=== PATIENT | female | born 1985 | race Caucasian/White ===

== ENCOUNTER → 2020-02-12 12:11 | Outpatient (CLI) | payer OTHER, SELFPAY ==
--- NOTE | ~2020-02-12 | XR_ITS ---
EXAMINATION: XR wrist LT min 3V DATE: 02/12/2020 12:29 INDICATION: Left wrist pain. TECHNIQUE: 4 views of left wrist were obtained. COMPARISON: None. FINDINGS: Bone alignment is normal. No fracture. Joint spaces are well maintained. IMPRESSION: 1. Normal left wrist. Reviewed, dictated and finalized at location A. IMPRESSION: 1. Normal left wrist.
== END ==
PROVIDERS: PCP Nurse Practitioner Family; Visit Provider Nurse Practitioner Family
DX: M25.532 Pain in left wrist (principal)
CPT/HCPCS: 73110

== ENCOUNTER → 2020-04-10 11:18 | Outpatient (CLI) | payer OTHER, SELFPAY ==
--- NOTE | ~2020-04-10 | US_ITS ---
EXAMINATION: US pelvic complete w TV DATE: 04/10/2020 11:46 INDICATION: Pelvic pain. TECHNIQUE: Multiple transabdominal and transvaginal sonographic images of the pelvis were obtained. COMPARISON: Ultrasound 08/01/2016 FINDINGS: TRANSABDOMINAL ULTRASOUND: The uterus measures 10.1 x 6.6 x 5.8 cm. There is trace free fluid in the pelvis. TRANSVAGINAL ULTRASOUND: The endometrial complex measures 7 mm in thickness. There is a 5 mm cyst in the endometrial complex. There is a 2.5 cm hypoechoic subserosal fibroid anteriorly. The right ovary measures 4.1 x 2.6 x 2.7 cm. The left ovary measures 2.4 x 2.1 x 3.6 cm. There is normal vascular flow in the ovaries. IMPRESSION: 1. Uterine fibroid. 2. Small cyst in the endometrial complex. Correlate with menstrual history to exclude gestational sac . Reviewed, dictated and finalized at location A. IMPRESSION: 1. Uterine fibroid. 2. Small cyst in the endometrial complex. Correlate with menstrual history to e xclude gestational sac.
== END ==
PROVIDERS: Visit Provider Nurse Practitioner Family
DX: R10.9 Unspecified abdominal pain (principal); D25.9 Leiomyoma of uterus, unspecified
CPT/HCPCS: 76830; 76856

== ENCOUNTER 2023-02-21 08:31 | Outpatient (CLI) | payer OTHER, SELFPAY ==
[2023-02-21 09:31] LABS: Hematocrit 40.5 % (37.0-47.0); Hemoglobin 13.2 g/dL (12.0-15.0); Mean Corpuscular HGB Conc 32.6 g/dl (32-36); Mean Corpuscular Hemoglobin 29.9 pg (26-34); Mean Corpuscular Volume 91.6 fl (80-100); Mean Platelet Volume 9.7 fl (7.4-10.4); Platelet Count Result 340 k/mm3 (150-375); Red Blood Count 4.42 M/mm3 (4.2-5.4); Red Cell Distribution Width 12.8 % (11.5-14.5)
== END 2023-02-21 08:32 | disposition home or self-care (01) ==
LOC: ANHSURGERY 08:35
PROVIDERS: PCP Nurse Practitioner Family; Visit Provider Obstetrics & Gynecology
DX: Z01.818 Encounter for other preprocedural examination (principal); D25.9 Leiomyoma of uterus, unspecified
CPT/HCPCS: 36415; 85027; 86850; 86900; 86901

== ENCOUNTER 2023-04-12 00:18 | Day surgery (SDC) | payer OTHER, SELFPAY ==
[2023-02-20 12:56] VITALS: BMI 25.7
--- NOTE | 2023-02-20 13:01 | PC.NURSE ---
Addendum entered by Magdalena Harden RN 03/28/23 14:53: PT TO ARRIVE AT 0600 ON 04/12/23 FOR SURGERY AT 0730. Original Note: Report to the Outpatient Waiting Room, entrance under the green pavilion located off [facility], at time 7:30 on date 03/01/23. Planned Procedure Time: 9:30. Time changes happen often and if your time is changed the preop area will call you the afternoon before. - You and your visitor will be asked to self-screen and do not enter if you have any COVID symptoms. - A mask is optional within the hospital at this time. Patients may have clear liquids (water, carbonated beverages, clear teas, apple juice) until 3 hours prior to surgery (6:30) with a maximum of 20 ounces. - No food from midnight until time of surgery Take the following medications with a SIP of water the morning of surgery: N/A DO NOT STOP ANY OF YOUR OTHER PRESCRIPTION MEDICATIONS PRIOR TO SURGERY ?EXCEPT THE FOLLOWING Medications to discontinue per physician: IBUPROFEN Date to take last dose: PER DR. CAIN Please no make-up, nail mongolian, hairspray, perfume, deodorant, or body powder the day of surgery. No jewelry (including any body piercings) or valuables the day of surgery, leave them at home. Please take a shower or bath the night before, or the morning of, surgery with an antibacterial soap. Wear comfortable, loose fitting clothing. - Jewelry must be removed prior to entering the operating room. Rings and piercings that are not removed may be cut off. - The hospital will not accept responsibility for valuables. - Please leave all valuables, including medications, at home the day of surgery. If you are going home after surgery, a licensed test car driver must drive you home. - NO public transportation without another adult if you receive anesthesia. - We recommend that an adult stay with you for 24 hours following discharge. - We also recommend that you do not drive, make important decision, drink alcoholic beverages, or take any drugs that were not prescribed by your health care provider for at least 24 hours after your discharge time. Follow any additional instructions given to you from your surgeon. If you or anyone in your household have experienced Covid symptoms in the past week, please notify your surgeon or the nurse liaison at the phone number below for possible testing. Telephone instructions given to PT - LUCINDA BRAMBILA and asked if any additional questions and then verbalized understanding. Patient advised to call surgeon office or pre surgery nurse liaison [phone] if any additional questions.
--- NOTE | 2023-04-10 17:58 | PM.IMHP ---
H&P: HPI History of Present Illness Date/Time: 04/10/23 17:58 38-year-old 4 para 3 0 1 3 presents with complaints of heavy menstrual cycles lasting 5-7 days 3-5 day heavy with clotting cramping is significant amount of discomfort during this time as well. Also relates painful intercourse throughout the month, and pain throughout the month as well. She has had an ultrasound which shows fibroids and multiple options have been discussed and she does desire to proceed with hysterectomy. Chief Complaint: Pelvic pain Review of Systems Review of Systems: All systems reviewed & are unremarkable except as noted in HPI and below PMFSH Past Medical History Medical History Anxiety Surgical History Surgical History [place] teeth removed Family History Family History Father Acute myocardial infarction Throat cancer Hypertension Heart disease Grandparent Cerebrovascular accident paternal grandmother Carcinoma of colon paternal grandfather Heart disease Social History Social History Smoking status: Never smoker Second hand tobacco smoke exposure: No Alcohol intake: never Substance use: never Substance use type: does not use Lack of Transportation: No Lack of Food: Never True Current Housing: I Have Housing Concerned About Future Housing: No Difficulty Paying Gas/Electric Bills: No Difficulty Paying for Meds: No Currently Unemployed: No Education: Trade/Vocational Certificate Difficulty w/ Childcare or Family Care: No Living arrangements: with family 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 Gender identity (if verbalized by the patient): Female Sexual Orientation (if Verbalized by the Patient): Straight or Heterosexual Spiritual care concerns: No Meds Home Medications and Allergies Home Medications Medication Instructions Recorded Confirmed Type ibuprofen 600 mg tablet 600 mg PO TID PRN Pain 02/20/23 03/28/23 History Allergies Allergy/AdvReac Type Severity Reaction Status Date / Time acetaminophen [From Vicodin] AdvReac Vomiting Verified 03/28/23 14:54 hydrocodone [From Vicodin] AdvReac Vomiting Verified 03/28/23 14:54 Exam Const: General: cooperative, healthy appearing and comfortable Resp: Effort & Inspection: normal respiratory effort Auscultation: clear to auscultation bilaterally Cardio: Rate: regular rate Rhythm: regular rhythm GI: Inspection: normal to inspection Auscultation: normal bowel sounds : External Female Exam: normal external appearance Speculum Exam - Vagina: normal appearance of the vagina Speculum Exam - Cervix: normal appearance of the cervix Bimanual exam- vagina & uterus: enlarged ( 8-10 week size and tender.) Bimanual Exam- Adnexa, other: normal adnexae Assessment and Plan Assessment and plan (1) Menorrhagia: Code(s): N92.0 - Excessive and frequent menstruation with regular cycle Status: Acute (2) Dysmenorrhea: Code(s): N94.6 - Dysmenorrhea, unspecified Status: Acute (3) Dyspareunia: Status: Acute (4) Uterine fibroid: Code(s): D25.9 - Leiomyoma of uterus, unspecified Status: Acute (5) Enlarged uterus: Code(s): N85.2 - Hypertrophy of uterus Status: Acute Plan proceed with robotic laparoscopic hysterectomy with ovarian preservation
[2023-04-12] VITALS (10 sets, daily range): BP systolic 93–132; BP diastolic 38–95; PULSE 65–98; RESP 14–22; TEMP 36.1–37.5; O2SAT 97–100
[2023-04-12] MEDS: ACETAMINOPHEN 500 MG TABLET 1000 MG PO (06:32)
[2023-04-12] MEDS: KETOROLAC 15 MG/ML VIAL (*BKC) IV PUSH (06:45)
[2023-04-12] MEDS: SCOPOLAMINE 1.5 MG PATCH TRANSDERM (06:45)
--- NOTE | 2023-04-12 06:45 | WPDANESEPPF ---
Anes - Initial Pre Proc Eval Procedure: Operation Date: 04/12/23 07:30 Proposed Procedures p Robotic Assisted Total Laparoscopic Hysterectomy with Bilateral Salpingectomy - Valentino Gill MD Date/Time: 04/12/23 06:45 Surgeon: Valentino Gill MD Pre Op Diagnosis: uterine fibroid, pelvic pain Patient Data Age: 38 Gender: F Height: 1.63 m Weight: 68.05 kg Allergies Allergy/AdvReac Type Severity Reaction Status Date / Time hydrocodone [From Vicodin] AdvReac Vomiting Verified 04/12/23 05:58 Home Medications Medication Instructions Recorded Confirmed Type ibuprofen 600 mg tablet 600 mg PO TID PRN Pain 02/20/23 04/12/23 History Patient hx anesthesia problems: none Family hx anesthesia problems: none Results Review: All pre-operative results and documents have been reviewed as part of the pre-operative evaluation. [facility] Past Medical History Medical History Anxiety Surgical History Surgical History [place] teeth removed Family History Family History Father Acute myocardial infarction Throat cancer Hypertension Heart disease Grandparent Cerebrovascular accident paternal grandmother Carcinoma of colon paternal grandfather Heart disease Social History Social History Smoking status: Never smoker Second hand tobacco smoke exposure: No Alcohol intake: never Substance use: never Substance use type: does not use Lack of Transportation: No Lack of Food: Never True Current Housing: I Have Housing Concerned About Future Housing: No Difficulty Paying Gas/Electric Bills: No Difficulty Paying for Meds: No Currently Unemployed: No Education: Trade/Vocational Certificate Difficulty w/ Childcare or Family Care: No Living arrangements: with family 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 Gender identity (if verbalized by the patient): Female Sexual Orientation (if Verbalized by the Patient): Straight or Heterosexual Spiritual care concerns: No Anes - Eval Final PreProcedure Day of Procedure 04/12/23 06:45 Patient weight: normal Heart: regular rate and rhythm Lungs: clear to auscultation Airway: Mallampati scale class II Neurological: alert and oriented Last oral intake: >/= 8 hours ASA classification: I Emergent: no Anesthetic plan: proceed Anesthesia type and monitoring: general ETT and standard monitoring Results Review: All pre-operative results and documents have been reviewed as part of the pre-operative evaluation. Informed Consent: The patient's anesthetic plan and its attendant risks and benefits were discussed with the patient/family/POA. Questions were solicited and answers provided to the satisfaction of the patient/family/POA.
--- NOTE | 2023-04-12 07:06 | WPDHPUPDATE1 ---
History and Physical Update Update Date/Time: 04/12/23 07:06 History and Physical has been reviewed, including an updated exam of the patient. There are NO changes in the patient's condition. Risks, benefits, and alternatives have been discussed and questions answered. Patient agrees to proceed with procedure.
[2023-04-12] MEDS: ceFAZolin 2 GM/D5W 50 ML 2 GM/50 ML BAG IVPB (07:25)
--- NOTE | 2023-04-12 08:53 | P.OP_ITS ---
Procedure Note - Detailed Date of Procedure 04/12/23 Pre-op Diagnosis 1. Menometrorrhagia 2. Dysmenorrhea 3. Enlarged leiomyomatous uterus Post-op Diagnosis Same Procedure Performed Robotic assisted laparoscopic hysterectomy with bilateral salpingectomy (no oophorectomy) Surgeon Valentino Gill MD Anesthesia General Findings 1. Enlarged uterus with fibroid Description of Procedure Patient prepped and draped usual manner for this procedure. Cervical instrum ents were placed for uterine mobility throughout the case. Attention was then placed to the abdomen, trocar sites were marked and placed under direct visualization. Trocars were then attached to the de Candi system instruments were placed under direct visualization. Once this was undertaken the surgeon moved to the console. Visual evaluation revealed enlarged fibroid uterus with tubes and ovaries without abnormality. Mesial salpinx was cauterized and cut bilaterally and tubes removed. Round ligament was cauterized and cut and bladder flap developed without difficulty. Posterior leaf of the broad ligament was incised as well to skeletonize the uterine vessels. These were then cauterized and cut bilaterally. Anterior colpotomy incision was made and this was carried circumferentially to separate the cervix from the vagina. Surgeon then moved to the vagina and removed the uterus through the vaginal incision. Surgeon then moved back to the console irrigation was undertaken. Cuff was then closed using V lock suture from the right angle to past the midline on the left and then from the left angle to past the midline on the right. There was no significant bleeding. Irrigation was undertaken. Luis Enrique was then placed empirically over the vaginal cuff and the gas was allowed to escape trocars removed and incisions approximated with 4-0 Monocryl. Patient was then sent to recovery room in stable condition Estimated Blood Loss 100 Drains No Packing No Pathology Yes Complications No immediate complications Condition Stable Disposition PACU [facility] Billing Surgery - Charge Forward: Surgery Billing
[2023-04-12] MEDS: LACTATED RINGERS 1,000 ML 30 ML IV CONT ×2 (09:08)
[2023-04-12] MEDS: fentaNYL CITRATE INJ (*CRX) 100 MCG/2 ML VIAL 25 MCG IV PUSH ×4 (09:45→10:09)
--- NOTE | 2023-04-12 10:42 | PC.NURSE ---
Patient transferred to post room #287 via (stretcher ). Support person present. Oriented to unit, room, information board, rooming in, admission packet and security measures. Patient verbalizes understanding.
[2023-04-12] MEDS: MORPHINE SULFATE (*CRX) 4 MG/ML INJ IV PUSH (10:57)
[2023-04-12] MEDS: DEXTROSE 5%/0.45% SOD CHL 1,000 ML 125 ML IV CONT (10:57)
[2023-04-12] MEDS: ONDANSETRON INJ 4 MG/2 ML VIAL IV PUSH ×2 (11:09→18:41)
[2023-04-12] MEDS: HYDROcodone/acetaminophen (*CRX) 5-325 MG TABLET 1 TAB PO ×4 (12:17→22:10)
[2023-04-12] MEDS: IBUPROFEN 600 MG TABLET PO (18:35)
[2023-04-13] MEDS: IBUPROFEN 600 MG TABLET PO ×2 (05:12→11:48)
[2023-04-13] MEDS: HYDROcodone/acetaminophen (*CRX) 5-325 MG TABLET 1 TAB PO ×2 (05:12→09:56)
[2023-04-13 05:16] VITALS: BP 97/54; PULSE 74; RESP 18; TEMP 36.7; O2SAT 99
[2023-04-13 05:34] LABS: Basophils Percent Auto 0.2 % (0.2-1.2); Eosinophils Percent Auto 0.1 % (0-4.4); Hemoglobin 10.4 g/dL (12.0-15.0); Immature Granulocyte Percent A 0.5 % (0-0.5); Lymphocytes Percent Auto 13.8 % (18.3-44.2); Mean Corpuscular HGB Conc 28.9 g/dl (32-36); Mean Corpuscular Hemoglobin 29.5 pg (26-34); Monocytes Absolute Auto 1.3 K/mm3 (0.1-0.6); Neutrophils Absolute Auto 14.8 K/mm3 (1.3-6.7); Neutrophils Percent Auto 78.4 % (45.5-73.1); Platelet Count Result 250 k/mm3 (150-375); Red Blood Count 3.53 M/mm3 (4.2-5.4); Red Cell Distribution Width 13.5 % (11.5-14.5); White Blood Count 18.8 K/mm3 (4.5-10.0)
[2023-04-13 07:45] VITALS: BP 103/51; PULSE 76; RESP 18; TEMP 36.7; O2SAT 100
== END 2023-04-13 12:05 | disposition home or self-care (01) ==
LOC: ANHSURGERY 05:50 → ANHOB2 04-13 06:55
PROVIDERS: PCP Nurse Practitioner Family; Visit Provider Obstetrics & Gynecology
PROC: (CPT 58571; principal; 2023-04-12 07:30)
DX: N92.1 Excessive and frequent menstruation with irregular cycle (principal); N94.6 Dysmenorrhea, unspecified; D25.1 Intramural leiomyoma of uterus
CPT/HCPCS: 58571; S2900; 36415; 85025; 85027; 86850; 86900; 86901; 88307; 99199; A9270; J0690; J1100; J1170; J1200; J1885; J2250; J2270; J2405; J2704; J2710; J3010; J7030; J7120; Q9968

== ENCOUNTER 2024-09-25 11:03 | Outpatient (CLI) | payer BC, SELFPAY ==
--- NOTE | ~2024-09-25 | XR_ITS ---
EXAMINATION: XR chest 2V 09/25/2024 11:19 INDICATION: Dyspnea PROCEDURE: 2 view chest COMPARISON: No prior studies for comparison. FINDINGS: The lungs are clear. The cardiomediastinal silhouette is within normal limits. There are no pleural effusions. There is no pneumothorax suspected. IMPRESSION: 1: NO ACUTE CARDIOPULMONARY DISEASE. Reviewed, dictated and finalized at location A.
== END 2024-09-25 11:04 | disposition home or self-care (01) ==
PROVIDERS: PCP Nurse Practitioner Family; Visit Provider Nurse Practitioner Family
DX: R06.00 Dyspnea, unspecified (principal)
CPT/HCPCS: 71046